=== PATIENT | female | born 2000 | race African-American/Black ===

== ENCOUNTER 2022-06-20 18:41 | Emergency (ER) | payer SELFPAY | END 2022-06-20 19:51 | disposition left against medical advice (07) | LOC: CSHERS 18:41 | DX: Z53.21 Procedure and treatment not carried out due to patient leaving prior to being seen by health care provider (principal) ==

== ENCOUNTER 2023-01-10 15:33 | Emergency (ER) | payer SELFPAY ==
[2023-01-10 16:50] LABS: SARS-CoV-2 NAA Rapid Test Not Detected (NotDetected)
[2023-01-10] MEDS ORDERED: Ibuprofen 200 MG TAB ONE (17:21)
== END 2023-01-10 18:00 | disposition home or self-care (01) ==
LOC: CSHERS 15:33
DX: J02.9 Acute pharyngitis, unspecified (principal); B34.9 Viral infection, unspecified; Z20.822 Contact with and (suspected) exposure to COVID-19
CPT/HCPCS: 87081; 87430; 99283

== ENCOUNTER 2023-02-09 16:39 | Emergency (ER) | payer SELFPAY ==
[2023-02-09 17:19] LABS: Bilirubin Neg (Negative); Blood, Urine 10 (Negative); Clarity Cloudy (Clear); Glucose, Urine (Dipstick) Normal (Negative); Ketone, Urine 50 mg/dL (Negative); Leukocyte 100 (Negative); Nitrite Negative (Negative); Protein, Urine (Dipstick) 15 mg/dl (Neg-Trace)
[2023-02-09 17:22] LABS: Pregnancy Test - Urine (BHCG) Negative (Negative); Pregu Control Background? CLEAR/WHITE (CLR/WHITE); Pregu Control Bar Appear? YES (CONTROL BAR)
[2023-02-09] MEDS ORDERED: Ketorolac Tromethamine 30 MG (1 mL) VIAL ONE (17:30)
[2023-02-09 17:53] LABS: Bacteria/HPF None Seen HPF (None Seen); CAUTI Indications for Culture Pelvic or flank pain; RBC/HPF 0-3 HPF (0-3); Squamous Epithelial 0-3 HPF (0-3); WBC/HPF 0-3 HPF (0-3)
[2023-02-09 17:55] LABS: Urine Culture Reflex No No
== END 2023-02-09 17:55 | disposition home or self-care (01) ==
LOC: CSHERS 16:39
DX: M54.41 Lumbago with sciatica, right side (principal)
CPT/HCPCS: 81001; 81025; 96372; 99283; J1885